=== PATIENT | male | born 1990 | race African-American/Black ===

== ENCOUNTER 2023-04-26 16:19 | Inpatient (IN) | payer OTHER ==
[2023-04-26 17:07] VITALS: BMI 21.2
[2023-04-26] MEDS ORDERED: IBUPROFEN 400 MG TABLET (FP) PO PRN (18:52)
[2023-04-26] MEDS ORDERED: MAG HYDROX/AL HYDROX/SIMETH 30 ML UNIT-DOSE CUP PO PRN (18:52)
[2023-04-26] MEDS ORDERED: LOPERAMIDE HCL 2 MG CAPSULE PO PRN (18:52)
[2023-04-26] MEDS ORDERED: ACETAMINOPHEN 325 MG TABLET (FP) PO PRN (18:52)
[2023-04-26] MEDS ORDERED: ONDANSETRON *ODT* 4 MG TABLET SL PRN (18:52)
[2023-04-26] MEDS ORDERED: guaiFENesin 600 MG TABLET.ER (FP) PO PRN (18:52)
[2023-04-26] MEDS ORDERED: BENZOCAINE/MENTHOL (CHLORASEPTIC ) LOZENGE MM PRN (18:52)
[2023-04-26] MEDS ORDERED: MAGNESIUM HYDROX 2400MG/30ML ORAL SUSPENSION 30 ML CUP PO PRN (18:52)
[2023-04-26] MEDS ORDERED: POLYETHYLENE GLYCOL (HEALTHYLAX) 3350 17 GM PACKET PO PRN (18:52)
[2023-04-26] MEDS ORDERED: NALOXONE HCL (KLOXXADO) 8 MG SPRAY NS PRN (18:52)
[2023-04-26] MEDS ORDERED: IBUPROFEN 600 MG TABLET (FP) PO PRN (18:52)
[2023-04-26] MEDS ORDERED: BISMUTH SUBSALICYLATE 524 MG/30 ML PO PRN (18:52)
[2023-04-26] MEDS ORDERED: BENZONATATE 200 MG CAPSULE PO PRN (18:52)
[2023-04-26] MEDS ORDERED: chlordiazePOXIDE HCL 25 MG CAPSULE PO PRN (18:52)
[2023-04-26] MEDS ORDERED: NALOXONE HCL 0.4 MG/ML VIAL IM PRN (18:52)
[2023-04-26] MEDS ORDERED: DICYCLOMINE HCL 10 MG CAPSULE PO PRN (18:52)
[2023-04-26] MEDS ORDERED: chlordiazePOXIDE HCL 25 MG CAPSULE ONE (19:17)
[2023-04-26] MEDS ORDERED: cloNIDine HCL 0.1 MG TABLET PO ONE (19:27)
[2023-04-26] MEDS ORDERED: cloNIDine HCL 0.1 MG TABLET ONE (19:35)
[2023-04-26] MEDS ORDERED: MELATONIN 5 MG TABLETS PO SCH (22:00)
[2023-04-26] MEDS: METHOCARBAMOL 500 MG TABLET PO PRN (22:16)
[2023-04-26] MEDS: hydrOXYzine PAMOATE 25 MG CAPSULE (FP) PO PRN (22:16)
[2023-04-26] MEDS: THIAMINE HCL 100 MG TABLET (FP) PO SCH (22:16)
[2023-04-26] MEDS: chlordiazePOXIDE HCL 25 MG CAPSULE PO SCH (22:17)
[2023-04-27] MEDS: chlordiazePOXIDE HCL 25 MG CAPSULE PO SCH ×4 (05:36→22:36)
[2023-04-27] MEDS: PRENATAL VITAMINS W/ FOLIC ACID TABLET (FP) PO SCH (10:15)
[2023-04-27 11:39] LABS: URINE APPEARANCE CLEAR; URINE BILIRUBIN 1+ (NEGATIVE); URINE COLOR DK YELLOW; URINE GLUCOSE (UA) NEGATIVE (NEGATIVE); URINE KETONE TRACE (NEGATIVE); URINE LEUK ESTERASE NEGATIVE (NEGATIVE); URINE NITRITE NEGATIVE (NEGATIVE); URINE PROTEIN TRACE (NEGATIVE)
[2023-04-27 11:56] LABS: CHLORIDE 96 mmol/L (98-107); POTASSIUM 3.6 mmol/L (3.5-5.1); SODIUM 138 mmol/L (136-145)
[2023-04-27 11:58] LABS: HEMATOCRIT 46.6 % (35.4-49); MCH 33.3 pg (25.7-33.7); MCHC 34.4 g/dl (32.0-35.9); MEAN CELL VOLUME 96.7 fl (80-96); MEAN PLT VOLUME 8.9 fl (7.5-11.1); PLATELET COUNT 124 10^3/uL (134-434); RBC 4.82 M/mm3 (4.00-5.60); RDW 13.7 % (11.9-15.9)
[2023-04-27 12:02] LABS: CALCIUM 9.5 mg/dL (8.5-10.1)
[2023-04-27 12:03] LABS: ALBUMIN 3.8 g/dl (3.4-5.0); ANION GAP 6 mmol/L (4-13); BLOOD UREA NITROGEN 13.2 mg/dL (7-18); CO2 36 mmol/L (21-32); GLUCOSE,RANDOM 142 mg/dL (74-106)
[2023-04-27 12:06] LABS: CREATININE 1.1 mg/dL (0.55-1.3); SGOT/AST 27 U/L (15-37); SGPT/ALT 26 U/L (13-61)
[2023-04-27 12:08] LABS: BILIRUBIN,TOTAL 1.1 mg/dL (0.2-1); TOT PROT 7.1 g/dl (6.4-8.2)
[2023-04-27 12:09] LABS: ALK PHOS 78 U/L (45-117)
[2023-04-27] MEDS ORDERED: OLANZapine 5 MG TABLET PO SCH (22:00)
[2023-04-27] MEDS: THIAMINE HCL 100 MG TABLET (FP) PO SCH (22:36)
[2023-04-27] MEDS: METHOCARBAMOL 500 MG TABLET PO PRN (22:38)
[2023-04-27] MEDS: hydrOXYzine PAMOATE 25 MG CAPSULE (FP) PO PRN (22:38)
[2023-04-27] MEDS: DIVALPROEX SODIUM 500 MG TABLET E.C. PO SCH (22:38)
[2023-04-27] MEDS: SUVOREXANT 10 MG TABLET PO PRN (22:38)
[2023-04-27] MEDS: OLANZapine 10 MG TABLET PO SCH (22:38)
[2023-04-28] MEDS: chlordiazePOXIDE HCL 25 MG CAPSULE PO SCH ×4 (05:41→22:19)
[2023-04-28] MEDS: PRENATAL VITAMINS W/ FOLIC ACID TABLET (FP) PO SCH (10:14)
[2023-04-28] MEDS: DIVALPROEX SODIUM 500 MG TABLET E.C. PO SCH (22:19)
[2023-04-28] MEDS: THIAMINE HCL 100 MG TABLET (FP) PO SCH (22:19)
[2023-04-28] MEDS: OLANZapine 10 MG TABLET PO SCH (22:19)
[2023-04-28] MEDS: SUVOREXANT 10 MG TABLET PO PRN (22:20)
[2023-04-28] MEDS: METHOCARBAMOL 500 MG TABLET PO PRN (22:22)
[2023-04-29] MEDS ORDERED: chlordiazePOXIDE HCL 10 MG CAPSULE PO PRN
[2023-04-29] MEDS: chlordiazePOXIDE HCL 10 MG CAPSULE PO SCH ×4 (05:33→22:18)
[2023-04-29] MEDS: PRENATAL VITAMINS W/ FOLIC ACID TABLET (FP) PO SCH (10:12)
[2023-04-29] MEDS: SUVOREXANT 10 MG TABLET PO PRN (22:18)
[2023-04-29] MEDS: THIAMINE HCL 100 MG TABLET (FP) PO SCH (22:19)
[2023-04-29] MEDS: OLANZapine 10 MG TABLET PO SCH (22:19)
[2023-04-29] MEDS: DIVALPROEX SODIUM 500 MG TABLET E.C. PO SCH (22:19)
[2023-04-30] MEDS: chlordiazePOXIDE HCL 10 MG CAPSULE PO SCH ×2 (05:29→17:38)
[2023-04-30] MEDS: PRENATAL VITAMINS W/ FOLIC ACID TABLET (FP) PO SCH (10:18)
[2023-04-30] MEDS: SUVOREXANT 10 MG TABLET PO PRN (21:26)
[2023-04-30] MEDS: OLANZapine 10 MG TABLET PO SCH (21:54)
[2023-04-30] MEDS: DIVALPROEX SODIUM 500 MG TABLET E.C. PO SCH (21:54)
[2023-04-30] MEDS: THIAMINE HCL 100 MG TABLET (FP) PO SCH (21:54)
[2023-05-01] MEDS ORDERED: chlordiazePOXIDE HCL 10 MG CAPSULE PO ONE (05:00)
[2023-05-01 08:55] VITALS: BP 152/81; PULSE 84; RESP 18; TEMP 98
== END 2023-05-01 08:54 | disposition home or self-care (01) | DRG 775 ==
LOC: SUATTDRO 16:19 → YASAS 16:19 → Y3N 19:07
PROVIDERS: ADMIT Allergy & Immunology; ATTEND Surgery
PROC: HZ2ZZZZ Detoxification Services for Substance Abuse Treatment (ICD-10-PCS; principal; 2023-04-26)
DX: F10.230 Alcohol dependence with withdrawal, uncomplicated (principal); F12.20 Cannabis dependence, uncomplicated; F17.210 Nicotine dependence, cigarettes, uncomplicated; F19.24 Other psychoactive substance dependence with psychoactive substance-induced mood disorder; F31.9 Bipolar disorder, unspecified; F43.10 Post-traumatic stress disorder, unspecified; G47.00 Insomnia, unspecified; Z62.810 Personal history of physical and sexual abuse in childhood; Z91.199 Patient's noncompliance with other medical treatment and regimen due to unspecified reason
CPT/HCPCS: 36415; 80053; 80307; 81003; 82947; 85027; 86780; 87635; 93005; 93010